=== PATIENT | female | born 1995 | race Two or more races ===

== ENCOUNTER 2019-01-04 18:58 | Emergency (ER) | payer MEDICAID ==
[~2019-01-04] VITALS: Ht 142.2 cm; Wt 47.8 kg
[2019-01-04 19:41] LABS: BASOPHILS # (AUTO) 0.09 x10^3/uL (0-0.1); BASOPHILS % (AUTO) 1 % (0-1); EOSINOPHILS # (AUTO) 0.08 x10^3/uL (0-0.4); EOSINOPHILS % (AUTO) 1 % (1-7); LYMPHOCYTES # (AUTO) 2.45 x10^3/uL (1-3.4); LYMPHOCYTES % (AUTO) 17 % (22-44); MD NO; MEAN CORPUSCULAR HEMOGLOBIN 27.9 pg (27.0-34.8); MEAN CORPUSCULAR HGB CONC 33.5 g/dL (32.4-35.8); MEAN CORPUSCULAR VOLUME 83.4 fL (80-100); MEAN PLATELET VOLUME 8.8 fL (7.4-10.4); MONOCYTES # (AUTO) 0.45 x10^3/uL (0.2-0.8); MONOCYTES % (AUTO) 3 % (2-9); NEUTROPHILS # (AUTO) 11.31 x10^3/uL (1.8-6.8); NEUTROPHILS % (AUTO) 79 % (42-75); PLATELET COUNT 262 x10^3/uL (130-400); RED BLOOD COUNT 5.09 x10^6/uL (3.82-5.3); RED CELL DISTRIBUTION WIDTH 14.5 % (9.6-15.2)
[2019-01-04 19:49] LABS: ALBUMIN 4.4 g/dL (3.4-5.0); ANION GAP 7 mmol/L (5-15); CALCIUM 9.1 mg/dL (8.5-10.1); CHLORIDE 107 mmol/L (98-107); CREATININE 0.74 mg/dL (0.55-1.02)
[2019-01-04 21:02] LABS: MICROSCOPIC INDICATED
[2019-01-04 21:09] LABS: CULTURE INDICATED? YES
[2019-01-04] MEDS ORDERED: HYDROcodone/APAP 5/325 TABLET PO ONE (21:24)
[2019-01-04] MEDS ORDERED: ONDANSETRON ODT 4 MG PO ONE (21:30)
[2019-01-04 21:59] VITALS: BP 112/73
== END 2019-01-04 22:15 | disposition home or self-care (01) ==
LOC: ED 21:45
DX: K80.20 Calculus of gallbladder without cholecystitis without obstruction (principal)
CPT/HCPCS: 36415; 76700; 80048; 81001; 81025; 82040; 83690; 85025; 87086; 99284